=== PATIENT | male | born 1995 | race African-American/Black ===

== ENCOUNTER → 2019-01-18 | Outpatient (CLI) | payer OTHER | LOC: MHCPAIN 13:57 | DX: G89.29 Other chronic pain (principal); M47.817 Spondylosis without myelopathy or radiculopathy, lumbosacral region; M53.3 Sacrococcygeal disorders, not elsewhere classified ==

== ENCOUNTER → 2019-02-01 | Outpatient (CLI) | payer OTHER ==
[~2019-02-01] MED LIST: CELEBREX 200MG200 MG PO; FLEXERIL 1010 MG/TAB PO
== END ==
LOC: MHCPAIN 13:39
DX: M47.817 Spondylosis without myelopathy or radiculopathy, lumbosacral region (principal); M54.16 Radiculopathy, lumbar region
CPT/HCPCS: J1040; Q9967

== ENCOUNTER → 2019-02-02 | Outpatient (CLI) | payer OTHER ==
[~2019-02-02] VITALS: Ht 177.8 cm; Wt 100.0 kg
[2019-02-02] VITALS (7 sets, daily range): BP systolic 124–150; BP diastolic 63–84; PULSE 67–88
[2019-02-02 07:30] LABS: PROTHROMBIN TIME 11.8 SECONDS (9.7-12.8)
--- NOTE | 2019-02-02 08:00 | NUR ---
time out completed, Dr Handley in room, procedure started
--- NOTE | 2019-02-02 08:10 | NUR ---
thea obtained and put in formulin. bandaid over site, pt up to w/c
== END ==
LOC: COL.RAD 06:38
PROVIDERS: Internal Medicine Gastroenterology
DX: R74.8 Abnormal levels of other serum enzymes (principal)
CPT/HCPCS: 32109

== ENCOUNTER → 2019-03-02 | Outpatient (CLI) | payer OTHER | LOC: MHCPAIN 13:43 | DX: G89.29 Other chronic pain (principal); M47.817 Spondylosis without myelopathy or radiculopathy, lumbosacral region; M53.3 Sacrococcygeal disorders, not elsewhere classified | CPT/HCPCS: G0463 ==

== ENCOUNTER → 2019-03-31 | Outpatient (CLI) | payer OTHER | LOC: MHCPAIN 12:19 | DX: G89.29 Other chronic pain (principal); M47.817 Spondylosis without myelopathy or radiculopathy, lumbosacral region; M53.3 Sacrococcygeal disorders, not elsewhere classified | CPT/HCPCS: G0463 ==

== ENCOUNTER → 2019-04-01 | Outpatient (CLI) | payer OTHER | LOC: MHCPAIN 09:54 | DX: M47.817 Spondylosis without myelopathy or radiculopathy, lumbosacral region (principal); M54.16 Radiculopathy, lumbar region ==

== ENCOUNTER → 2019-04-15 | Outpatient (CLI) | payer OTHER | LOC: MHCPAIN 13:00 | DX: M47.817 Spondylosis without myelopathy or radiculopathy, lumbosacral region (principal); M54.16 Radiculopathy, lumbar region | CPT/HCPCS: J1100; J2250; J3010 ==

== ENCOUNTER → 2019-10-15 | Outpatient (CLI) | payer OTHER ==
--- NOTE | 2019-10-12 08:13 | NUR ---
lmom with date,time and instructions for procedure
[~2019-10-15] VITALS: Ht 177.8 cm; Wt 116.7 kg
[2019-10-15] VITALS (11 sets, daily range): BP systolic 111–130; BP diastolic 56–81; PULSE 67–83
[2019-10-15 13:10] LABS: PROTHROMBIN TIME 12.1 SECONDS (9.7-12.8)
--- NOTE | 2019-10-15 13:15 | NUR ---
PT TAKEN TO CT ROOM AND PLACED INTO POSITION BY STAFF. MONITORING EQUIPMENT PLACED. IMAGES TAKEN AND SENT
--- NOTE | 2019-10-15 13:30 | NUR ---
GEL FOAM PLACED INTO SITE. PROCEDURE COMPLETED. PT CLEANED UP AND BANDAIDE PLACED. SITE IS CDI. NO PAIN AT PRESENT. PT ASSISTED TO TRANSFER TO WHEELCHAIR.
== END ==
LOC: COL.RAD 12:26
PROVIDERS: Radiology Diagnostic Radiology
DX: K75.9 Inflammatory liver disease, unspecified (principal); E66.9 Obesity, unspecified

== ENCOUNTER → 2019-12-02 | Outpatient (CLI) | payer OTHER | LOC: COL.RAD 07:13 | DX: K76.0 Fatty (change of) liver, not elsewhere classified (principal); R74.8 Abnormal levels of other serum enzymes; K75.9 Inflammatory liver disease, unspecified; E66.9 Obesity, unspecified | CPT/HCPCS: A9585 ==